=== PATIENT | female | born 1985 | race Caucasian/White ===

== ENCOUNTER 2016-12-29 21:08 | Emergency (ER) | payer OTHER ==
[2016-12-29 21:24] VITALS: BP 134/80; PULSE 103; TEMP 98.6; BMI 26.6
--- NOTE | 2016-12-29 21:49 | PDOC ---
History of Present Illness - General Chief Complaint: Cold Symptoms Stated Complaint: COLD SYMPTOMS Time Seen by Provider: 12/29/16 21:47 History Source: Patient Exam Limitations: No Limitations - History of Present Illness Initial Comments: 12/29/16 22:06 My chief complaint: Cough 3 days, or back pain mostly right sided for years with radiation down right leg History of present illness: Pt. is a 31 y/o Old female with a history of hypertension and lumbar radiculopathy down right leg for many years. Patient is here today productive cough with yellowish phlegm with fever 3 days. Patient denies any wheezing or shortness of breath. Patient denies any nasal congestion, sore throat, nausea vomiting or diarrhea. Patient denies any weakness of her right leg or numbness of right leg or any incontinency or saddle anesthesia. Patient has been taking Mobic 7.5 mg daily for back pain however she reports that this is not helping. Patient has never seen a primary care provider for a neurologist. Patient was given a number for neurologist and will make an appointment tomorrow. 12/29/16 22:47 Timing/Duration: intermittent (for 3 days ) Severity: moderate (right lower back pain) Associated Symptoms: reports: cough (for 3 days) Past History - Past Medical History Allergies/Adverse Reactions: Allergies Allergy/AdvReac Type Severity Reaction Status Date / Time No Known Allergies Allergy Verified 12/29/16 21:24 Home Medications: Ambulatory Orders Ferrous Sulfate [Feosol] 325 mg PO TID 08/18/15 Hydrochlorothiazide [Hctz -] 12.5 mg PO DAILY 08/18/15 Azithromycin [Zithromax 250mg Tablets -] 250 mg PO UTDICT #6 tab 12/29/16 Guaifenesin Dm [Mucinex Dm -] 1 - 2 tab PO Q12H PRN #20 tab.er.12h 12/29/16 Naproxen [Naprosyn -] 500 mg PO BID PRN #14 tablet 12/29/16 HTN: Yes Other medical history: chronic back pain - Immunization History Immunization Up to Date: Yes - Psycho/Social/Smoking Cessation Hx Anxiety: No Suicidal Ideation: No Smoking History: Current every day smoker Have you smoked in the past 12 months: Yes Number of Cigarettes Smoked Daily: 10 Information on smoking cessation initiated: No 'Breaking Loose' booklet given: 09/06/15 Hx Alcohol Use: No Drug/Substance Use Hx: No Substance Use Type: None Review of Systems - Review of Systems Able to Perform ROS?: Yes Constitutional: No: Symptoms Reported HEENTM: No: Symptoms Reported Respiratory: Yes: Productive cough. No: Orthopnea, Shortness of Breath, SOB with Exertion, SOB at Rest, Wheezing Cardiac (ROS): No: Symptoms Reported ABD/GI: No: Symptoms Reported : No: Symptoms Reported Musculoskeletal: Yes: Back Pain (right lower back with radiation down rt. leg for years), Muscle Pain (rt.lower back ) Integumentary: No: Symptoms Reported Neurological: No: Symptoms reported *Physical Exam - Vital Signs Last Vital Signs Temp Pulse Resp BP Pulse Ox 98.6 F 103 H 21 134/80 98 12/29/16 21:20 12/29/16 21:20 12/29/16 21:20 12/29/16 21:20 12/29/16 21:20 - Physical Exam General Appearance: Yes: Appropriately Dressed Respiratory/Chest: positive: Normal Breath Sounds, Rhonchi (clears with cough ) . negative: Chest Tender, Respiratory Distress Cardiovascular: positive: Regular Rhythm, Regular Rate, S1, S2 Musculoskeletal: positive: Normal Inspection, Decreased Range of Motion (with bending ), Other (rt. lumbar paraspinal muscle tenderness). negative: CVA Tenderness, CVA Tenderness (R), CVA Tenderness (L), Vertebral Tenderness Integumentary: positive: Normal Color Neurologic: positive: Alert, Normal Response, Motor Strength 5/5 (lower ext b/l ), Respond to painful stimul (b/l legs), Responsive, Other (negative SLR b/l ). negative: Sensory Deficit (legs) Deep Tendon Reflexes: Ankle (L): 4+, Ankle (R): 4+, Knee (L): 4+, Knee (R): 4+ Medical Decision Making - Medical Decision Making 12/29/16 22:45 12/29/16 22:45 12/29/16 22:47 12/29/16 22:49 Is a 31-year-old female with a history of hypertension and lumbar radiculopathy down right leg for many years. Patient is here today due to having a productive cough with yellowish phlegm and fever 3 days. She feels like she needs to cough more phlegm up from her chest. Patient denies any wheezing or any shortness of breath. Patient denies any nasal congestion, sore throat, or any nausea vomiting or diarrhea. Patient she travel. Patient has been taking Mobic' s 7.5 mg daily for back pain however she reports that this is not helping. Patient was told to make an appointment with a neurologist by her primary care provider patient has not done so yet will do so tomorrow. Patient denies any weakness of right leg or any numbness of right leg or any saddle anesthesia or any incontinency. Patient denies that right sided lower back and pain down her right leg is worse than usual is currently an 8 out of 10. Right sided lower back pain with radiculopathy down right leg Bronchitis PLAN: toradol 60 mg IM now duoneb azithromycin 250 mg pop 2 tabs today than one tab daily for following 4 days mucinex DM 1-2 tab q12 hr prn cough for 5 days naprosyn 500 mg bid prn pain # 14 tabs *DC/Admit/Observation/Transfer Diagnosis at time of Disposition: Bronchitis, Lumbar radiculopathy, right - Discharge Dispostion Disposition: HOME Condition at time of disposition: Stable - Patient Instructions Additional Instructions: Call neurologist that your primary care provider had given you the number or for call for appointment for further evaluation Return to emergency room if any numbness of groin or legs or worsening lower back pain or any loss of control of bladder or bowel movement Or any difficulty breathing Drink A lot a fluids and rest Take acetaminophen as directed by livery car driver for fever Patient voiced understanding of discharge instructions and all questions were answered
[2016-12-29] MEDS ORDERED: KETOROLAC TROMETHAMINE 60 MG/2 ML VIAL ONE (22:05)
[2016-12-29] MEDS ORDERED: ALBUTEROL SO4 2.5/IPRATROPIUM 0.5 INH SOL 3 ML VIAL.NEB. NEB ONE ×2 (22:05→22:06)
[2016-12-29] MEDS ORDERED: KETOROLAC TROMETHAMINE 60 MG/2 ML VIAL IM ONE (22:06)
== END 2016-12-29 23:00 | disposition home or self-care (01) ==
LOC: JERFT 21:08
PROC: 3E0F7GC Introduction of Other Therapeutic Substance into Respiratory Tract, Via Natural or Artificial Opening (ICD-10-PCS; principal; 2016-12-29)
PROC: 3E0233Z Introduction of Anti-inflammatory into Muscle, Percutaneous Approach (ICD-10-PCS; 2016-12-29)
DX: J40 Bronchitis, not specified as acute or chronic (principal); M54.16 Radiculopathy, lumbar region
CPT/HCPCS: 99281-25

== ENCOUNTER 2017-02-02 09:42 | Emergency (ER) | payer OTHER ==
[2017-02-02 09:46] VITALS: BP 132/83; PULSE 94; TEMP 98.2; BMI 26.4
[2017-02-02] MEDS ORDERED: CEPHALEXIN MONOHYDRATE 500 MG CAPSULE (UD) PO ONE (10:42)
[2017-02-02] MEDS ORDERED: CEPHALEXIN MONOHYDRATE 500 MG CAPSULE (UD) ONE (10:48)
--- NOTE | 2017-02-02 10:48 | PDOC ---
History of Present Illness - General Chief Complaint: Pain Stated Complaint: BREAST PAIN Time Seen by Provider: 02/02/17 10:35 History Source: Patient Exam Limitations: No Limitations - History of Present Illness Initial Comments: 02/02/17 10:42 Patient is here with complaints of pain and small mass to her right medial nipple. States is uncertain as to cause, the started to hurt couple days ago. Patient states 2-year-old son sleeps with her and frequently lies on her chest. And feels maybe his head struck her chest wall causing some tenderness. Patient states also suffers from cysts and is uncertain if there was a cyst in that spot of her breast before. Does not perform self breast exams. Has had no skin changes, no drainage from her nipple, no other injury or fever. Occurred: reports: yesterday Severity: reports: mild, moderate Pain Location: reports: chest Method of Injury: Yes: unknown Past History - Past Medical History Allergies/Adverse Reactions: Allergies Allergy/AdvReac Type Severity Reaction Status Date / Time No Known Allergies Allergy Verified 02/02/17 09:45 Home Medications: Ambulatory Orders Cephalexin Monohydrate [Keflex -] 500 mg PO Q8H #21 capsule 02/02/17 HTN: Yes - Immunization History Immunization Up to Date: Yes - Psycho/Social/Smoking Cessation Hx Anxiety: No Suicidal Ideation: No Smoking History: Never smoked Have you smoked in the past 12 months: Yes Number of Cigarettes Smoked Daily: 10 Information on smoking cessation initiated: No 'Breaking Loose' booklet given: 09/06/15 Hx Alcohol Use: No Drug/Substance Use Hx: No Substance Use Type: None Review of Systems - Review of Systems Able to Perform ROS?: Yes Is the patient limited Romanian proficient: Yes Constitutional: Yes: Symptoms Reported, See HPI. No: Fever, Loss of Appetite, Malaise HEENTM: No: Symptoms Reported Respiratory: No: Symptoms reported Cardiac (ROS): No: Symptoms Reported Integumentary: Yes: Symptoms Reported, See HPI, Lumps Neurological: No: Symptoms reported All Other Systems: Reviewed and Negative *Physical Exam - Vital Signs Last Vital Signs Temp Pulse Resp BP Pulse Ox 98.2 F 94 H 18 132/83 99 02/02/17 09:44 02/02/17 09:44 02/02/17 09:44 02/02/17 09:44 02/02/17 09:44 - Physical Exam General Appearance: Yes: Nourished, Appropriately Dressed, Apparent Distress HEENT: positive: LUKE, Normal ENT Inspection, TMs Normal, Pharynx Normal Neck: positive: Supple. negative: Tender Respiratory/Chest: positive: Lungs Clear, Normal Breath Sounds Cardiovascular: positive: Regular Rate Musculoskeletal: positive: Normal Inspection Integumentary: positive: Normal Color, Other (right breast with inverted nipple , has no obvious redness, swelling, lesion to nipple although has palpable and tender mass to the medial inferior aspect of Ramon LOC approximately 1 cm and mobile. No drainage from nipple, no skin changes, and is tender to touch. Left breast is without issue) Neurologic: positive: quilt maker II-XII NML intact, Fully Oriented, Alert, Normal Mood/ Affect, Normal Response, Motor Strength 5/5 Progress Note - Progress Note Progress Note: Possible cyst cellulitis/mastitis right breast. We'll treat with Keflex for 1 week, patient understands to follow-up with PMD for wound check *DC/Admit/Observation/Transfer Diagnosis at time of Disposition: Mastitis, right, acute - Discharge Dispostion Disposition: HOME Condition at time of disposition: Stable Admit: No - Patient Instructions Printed Discharge Instructions: DI for Mastitis Additional Instructions: Rest, avoid strenuous activity or exercise until pain resolves Warm soaks as often as possible Motrin for pain relief Keflex 500 mg tablet 1 tablet every 8 hours for 1 week Follow-up with your private physician for reevaluation Return To emergency department for worsening swelling, pain, redness, fevers or problems - Post Discharge Activity Work/School Note: Back to Work
== END 2017-02-02 11:00 | disposition short-term general hospital (02) ==
LOC: JERFT 09:42
DX: N61.0 Mastitis without abscess (principal); Z87.891 Personal history of nicotine dependence; I10 Essential (primary) hypertension
CPT/HCPCS: 99281-25

== ENCOUNTER 2023-07-27 20:32 | Emergency (ER) | payer OTHER ==
[2023-07-27 20:58] VITALS: BP 147/91; PULSE 90; RESP 20; TEMP 98.3; BMI 23.8
[2023-07-27] MEDS ORDERED: KETOROLAC TROMETHAMINE 15 MG/ML VIAL IVPUSH ONE (21:28)
[2023-07-27] MEDS ORDERED: SODIUM CHLORIDE 0.9% 500 ML INFUS.BAG IV ONE (21:28)
[2023-07-27] MEDS ORDERED: KETOROLAC TROMETHAMINE 15 MG/ML VIAL ONE (21:46)
[2023-07-27] MEDS ORDERED: LIDOCAINE 4% PATCH TP ONE (21:58)
[2023-07-27 22:13] LABS: BASO % 0.3 % (0-2.0); EOS % 2.2 % (0-4.5); HEMOGLOBIN 11.3 GM/dL (10.7-15.3); LYMPH % 19.3 % (8-40); MCH 26.7 pg (25.7-33.7); MCHC 32.1 g/dl (32.0-36.0); MEAN CELL VOLUME 83.2 fl (80-96); MEAN PLT VOLUME 7.7 fl (7.5-11.1); MONO % 4.5 % (3.8-10.2); NEUT % 73.7 % (42.8-82.8); PLATELET COUNT 510 10^3/uL (134-434); RBC 4.21 M/mm3 (3.60-5.2); RDW 17.8 % (11.6-15.6); WHITE BLOOD COUNT 14.8 K/mm3 (4.0-10.0)
[2023-07-27 22:20] LABS: INR 1.13 (0.83-1.09); PROTHROMBIN TIME (PATIENT) 13.1 SEC (9.7-13.0)
[2023-07-27 22:23] LABS: ACTIVATED PTT 29.6 SECONDS (25.2-36.5)
[2023-07-27 22:33] LABS: POTASSIUM 3.7 mmol/L (3.5-5.1)
[2023-07-27 22:35] LABS: CALCIUM 8.8 mg/dL (8.5-10.1)
[2023-07-27 22:36] LABS: ALBUMIN 3.6 g/dl (3.4-5.0); BLOOD UREA NITROGEN 9.6 mg/dL (7-18); MAGNESIUM 2.1 mg/dL (1.8-2.4)
[2023-07-27 22:40] LABS: BILIRUBIN,TOTAL 0.2 mg/dL (0.2-1); TOT PROT 7.1 g/dl (6.4-8.2)
== END 2023-07-27 23:22 | disposition home or self-care (01) ==
LOC: JER 20:32
PROC: 3E0333Z Introduction of Anti-inflammatory into Peripheral Vein, Percutaneous Approach (ICD-10-PCS; principal; 2023-07-27)
DX: R07.89 Other chest pain (principal); R00.2 Palpitations; R61 Generalized hyperhidrosis
CPT/HCPCS: 36415; 71046-TC-FY; 80053; 83735; 84484; 85025; 85610; 85730; 93005; 93010; 99285-25

== ENCOUNTER 2023-09-18 13:01 | Inpatient (IN) | payer OTHER ==
[2023-09-18] MEDS ORDERED: morphine SULFATE 4 MG/ML VIAL ONE ×2 (15:08→19:29)
[2023-09-18 15:12] LABS: BASO % 0.9 % (0-2.0); EOS % 1.3 % (0-4.5); HEMATOCRIT 33.8 % (32.4-45.2); HEMOGLOBIN 10.8 GM/dL (10.7-15.3); LYMPH % 13.8 % (8-40); MCHC 31.9 g/dl (32.0-36.0); MEAN CELL VOLUME 81.4 fl (80-96); MEAN PLT VOLUME 7.6 fl (7.5-11.1); MONO % 5.1 % (3.8-10.2); NEUT % 78.9 % (42.8-82.8); PLATELET COUNT 512 10^3/uL (134-434); RBC 4.16 M/mm3 (3.60-5.2); RDW 18.4 % (11.6-15.6); WHITE BLOOD COUNT 12.9 K/mm3 (4.0-10.0)
[2023-09-18] MEDS: morphine CARPU-JECT 4 MG/1 ML DISP.SYRIN IVPUSH ONE ×2 (15:21→19:35)
[2023-09-18 15:37] LABS: POTASSIUM 3.8 mmol/L (3.5-5.1)
[2023-09-18 15:39] LABS: ALBUMIN 3.8 g/dl (3.4-5.0); BLOOD UREA NITROGEN 6.4 mg/dL (7-18); CALCIUM 9.3 mg/dL (8.5-10.1)
[2023-09-18 15:42] LABS: CREATININE 0.9 mg/dL (0.55-1.3)
[2023-09-18 15:44] LABS: BILIRUBIN,TOTAL 0.4 mg/dL (0.2-1); TOT PROT 7.1 g/dl (6.4-8.2)
[2023-09-18] MEDS: LIDOCAINE HCL 5% TOP OINTMENT 50 GM TUBE TP ONE (19:36)
[2023-09-18] MEDS ORDERED: ACETAMINOPHEN INJECTION 100 ML IVPB ONE (19:41)
[2023-09-18] MEDS: ACETAMINOPHEN 1000 MG/100 ML BAG IVPB ONE (19:44)
[2023-09-18] MEDS ORDERED: AMPICILLIN NA/SULBACTAM NA 3 GM VIAL ONE (20:48)
[2023-09-18] MEDS: AMPICILLIN NA/SULBACTAM NA 3 GM in DEXTROSE 5%-WATER 100 ML IVPB ONE (20:58)
[2023-09-18] MEDS ORDERED: VANCOMYCIN 1 GRAM (PRE-DOCKED) 1,000 MG/250 ML BAG IVPB ONE (21:41)
[2023-09-18] MEDS: VANCOMYCIN 1,000 MG in DEXTROSE 5%-WATER - 250 ML IVPB ONE (22:51)
[2023-09-19] MEDS ORDERED: DIPHTH,PERTUSS(ACELL),TET 0.5 ML DISP.SYRIN IM ONE (00:07)
[2023-09-19] MEDS: DIPHTH,PERTUSS(ACELL),TET 0.5 ML DISP.SYRIN IM ONE (00:12)
[2023-09-19] MEDS ORDERED: CYCLOBENZAPRINE HCL 10 MG TABLET (FP) PO PRN ×2 (06:43→13:36)
[2023-09-19 06:50] LABS: BASO % 1.1 % (0-2.0); EOS % 3.2 % (0-4.5); HEMATOCRIT 29.7 % (32.4-45.2); HEMOGLOBIN 9.5 GM/dL (10.7-15.3); MCH 25.7 pg (25.7-33.7); MCHC 31.9 g/dl (32.0-36.0); MEAN CELL VOLUME 80.7 fl (80-96); MEAN PLT VOLUME 7.5 fl (7.5-11.1); MONO % 6.4 % (3.8-10.2); NEUT % 70.3 % (42.8-82.8); PLATELET COUNT 450 10^3/uL (134-434); RBC 3.68 M/mm3 (3.60-5.2); RDW 18.1 % (11.6-15.6); WHITE BLOOD COUNT 11.8 K/mm3 (4.0-10.0)
[2023-09-19 07:10] LABS: POTASSIUM 3.5 mmol/L (3.5-5.1)
[2023-09-19 07:13] LABS: CALCIUM 8.9 mg/dL (8.5-10.1)
[2023-09-19 07:14] LABS: ALBUMIN 3.2 g/dl (3.4-5.0); BLOOD UREA NITROGEN 10.6 mg/dL (7-18); MAGNESIUM 1.9 mg/dL (1.8-2.4)
[2023-09-19 07:17] LABS: BILIRUBIN,TOTAL 0.3 mg/dL (0.2-1); CREATININE 0.9 mg/dL (0.55-1.3)
[2023-09-19 07:18] LABS: TOT PROT 6.5 g/dl (6.4-8.2)
[2023-09-19] MEDS ORDERED: VANCOMYCIN 1 GRAM (PRE-DOCKED) 1,000 MG/250 ML BAG IVPB ONE (09:15)
[2023-09-19] MEDS: VANCOMYCIN 1 GRAM (PRE-DOCKED) 1,000 MG/250 ML BAG IVPB SCH (09:40)
[2023-09-19 10:59] LABS: INR 1.1 (0.83-1.09); PROTHROMBIN TIME (PATIENT) 12.8 SEC (9.7-13.0)
[2023-09-19 11:31] VITALS: BMI 26.2
[2023-09-19] MEDS: GABAPENTIN 300 MG CAPSULE PO SCH (11:31)
[2023-09-19] MEDS ORDERED: ACETAMINOPHEN 1000 MG/100 ML BAG IVPB PRN (11:31)
[2023-09-19] MEDS: ENOXAPARIN NA (PORCINE) 40 MG/0.4 ML DISP.SYRIN SQ SCH (11:32)
[2023-09-19] MEDS ORDERED: LIDOCAINE HCL 1%, 10 MG/ML (20ML VIAL) ONE (12:06)
[2023-09-19] MEDS ORDERED: SUCCINYLCHOLINE CHLORIDE 200 MG/10 ML SYRINGE ONE (12:09)
[2023-09-19] MEDS ORDERED: MIDAZOLAM HCL 2 MG/2 ML SINGLE DOSE VIAL ONE (12:09)
[2023-09-19] MEDS ORDERED: PROPOFOL 40 ML ONE (12:09)
[2023-09-19] MEDS ORDERED: PROMETHAZINE HCL 25 MG/1 ML VIAL IVPB PRN (13:31)
[2023-09-19] MEDS ORDERED: LACTATED RINGERS SOLUTION 1,000 ML IV SCH (13:45)
[2023-09-19] MEDS: VANCOMYCIN 1,000 MG in DEXTROSE 5%-WATER - 250 ML IVPB SCH (14:19)
[2023-09-19] MEDS: CEFAZOLIN 1 GM in DEXTROSE 5%-WATER - 50 ML IVPB SCH (17:16)
[2023-09-19] MEDS: ACETAMINOPHEN 1000 MG/100 ML BAG IVPB SCH (19:06)
[2023-09-19] MEDS ORDERED: VANCOMYCIN 1,000 MG in DEXTROSE 5%-WATER - 250 ML IVPB SCH (20:00)
[2023-09-19] MEDS ORDERED: VANCOMYCIN/WATER FOR INJ (PEG) 1,000 MG/250 ML BAG IVPB SCH (21:00)
[2023-09-20] MEDS: oxyCODONE HCL 5 MG TABLET PO PRN (06:04)
[2023-09-20 08:58] LABS: BASO % 0.7 % (0-2.0); EOS % 0.6 % (0-4.5); HEMATOCRIT 31.7 % (32.4-45.2); HEMOGLOBIN 10.1 GM/dL (10.7-15.3); MCH 25.9 pg (25.7-33.7); MCHC 31.9 g/dl (32.0-36.0); MEAN CELL VOLUME 81.2 fl (80-96); MEAN PLT VOLUME 7.8 fl (7.5-11.1); NEUT % 73.7 % (42.8-82.8); PLATELET COUNT 490 10^3/uL (134-434); RBC 3.91 M/mm3 (3.60-5.2); RDW 18.2 % (11.6-15.6); WHITE BLOOD COUNT 13.4 K/mm3 (4.0-10.0)
[2023-09-20 09:28] LABS: POTASSIUM 3.8 mmol/L (3.5-5.1)
[2023-09-20 09:30] LABS: CALCIUM 8.9 mg/dL (8.5-10.1)
[2023-09-20 09:31] LABS: ALBUMIN 3.4 g/dl (3.4-5.0); BLOOD UREA NITROGEN 8.6 mg/dL (7-18)
[2023-09-20 09:34] LABS: CREATININE 0.6 mg/dL (0.55-1.3); PHOSPHOROUS 2.7 mg/dL (2.5-4.9)
[2023-09-20 09:36] LABS: BILIRUBIN,TOTAL 0.2 mg/dL (0.2-1); TOT PROT 6.6 g/dl (6.4-8.2)
[2023-09-20] MEDS: GABAPENTIN 300 MG CAPSULE PO SCH (09:53)
[2023-09-20] MEDS: ENOXAPARIN NA (PORCINE) 40 MG/0.4 ML DISP.SYRIN SQ SCH (09:53)
[2023-09-20 14:40] VITALS: BP 137/83; PULSE 68; RESP 20; TEMP 98.4
== END 2023-09-20 21:10 | disposition left against medical advice (07) | DRG 385 ==
LOC: JER 13:01 → JERBED 22:40 → J7W 09-19 10:24
PROVIDERS: ADMIT Internal Medicine; ATTEND Internal Medicine
PROC: 0JB60ZZ Excision of Chest Subcutaneous Tissue and Fascia, Open Approach (ICD-10-PCS; 2023-09-19)
PROC: 0W980ZZ Drainage of Chest Wall, Open Approach (ICD-10-PCS; principal; 2023-09-19 12:00)
DX: L72.3 Sebaceous cyst (principal); L02.213 Cutaneous abscess of chest wall; I10 Essential (primary) hypertension; D64.9 Anemia, unspecified; F17.200 Nicotine dependence, unspecified, uncomplicated; M50.30 Other cervical disc degeneration, unspecified cervical region; M48.02 Spinal stenosis, cervical region; B95.7 Other staphylococcus as the cause of diseases classified elsewhere
CPT/HCPCS: 36415; 71260-TC; 74160-TC; 80053; 83735; 84100; 84703; 85025; 85610; 85730; 86140; 87040; 87070; 87205; 90715; 93005; 93010; 94760; 99285-25; J0131; Q9967